=== PATIENT | female | born 1995 | race Caucasian/White ===

== ENCOUNTER 2019-07-09 00:24 | Outpatient (CLI) | payer OTHER, SELFPAY | END 2019-07-09 00:25 | disposition home or self-care (01) | LOC: ANHCOVIDDT 00:25 | PROVIDERS: Visit Provider Surgery Plastic and Reconstructive Surgery | DX: Z01.818 Encounter for other preprocedural examination (principal); Z11.59 Encounter for screening for other viral diseases | CPT/HCPCS: 87635; C9803; U0003 ==

== ENCOUNTER 2019-07-12 00:36 | Day surgery (SDC) | payer OTHER, SELFPAY ==
[2019-07-05 16:27] VITALS: BMI 36.3
[2019-07-12] VITALS (12 sets, daily range): BP systolic 108–129; BP diastolic 56–97; PULSE 98–112; RESP 14–20; TEMP 36.6; O2SAT 90–100
--- NOTE | 2019-07-12 07:01 | WPDHPUPDATE1 ---
History and Physical Update Update Date/Time: 07/12/19 07:01 History and Physical has been reviewed, including an updated exam of the patient. There are NO changes in the patient's condition. Risks, benefits, and alternatives have been discussed and questions answered. Patient agrees to proceed with procedure.
--- NOTE | 2019-07-12 07:01 | P.OP_ITS ---
Procedure Note - Detailed Date of procedure: 07/12/19 Pre-op diagnosis: Macromastia Post-op diagnosis: same Procedure performed: Bilateral Breast Reduction Description of procedure: She is here today for bilateral breast reduction. Previously and again today the risks, benefits, alternatives were discussed in extensive detail. I wanted her to be very realistic about the risks involved as well as expectations. We discussed aftercare and what to monitor for. She understands we can never guarantee final breast size and there will always be asymmetry. I was very upfront and honest about the risks of sensation change and even nipple loss (). Made sure answered all of her questions to her satisfaction today and consent was obtained. She was marked in the preoperative holding area with their verification. The patient was taken to the operating room placed supine on the operating table. Anesthesia was provided by anesthesiology. She was prepped and draped in a standard sterile fashion. A surgical time-out was taken. Stab incisions were made and I tumessed with a tumescent solution. I marked out the nipple-areolar complex at 42 mm. I then de-epithelialized the pedicle. The pedicle was well left well more than 2 cm in thickness. I then removed the inferior portion of the breast as well as the central keel to get shape based on preoperative planning. At this point copiously irrigated with saline solution and verified a strict hemostasis. I reapproximated the pillars using a 2-0 PDS as well as along the IMF. I tailor tacked the breast into place with fernando. She was placed in a sitting position. I verified the nipple-areolar complex position based on preoperative markings, intraoperative measurements, and observation which were in full agreement. This nipple-areolar complex was marked at 42 mm in size. I then placed supine and de-epithelialized this. Nipple-areolar complex was inset with 3-0 Monocryl. I closed the vertical incision with 3-0 Monocryl in the IMF with 3-0 stratafix. Then everything was closed using a running subcuticular 4-0 Monocryl followed by Steri-Strips. A dressing was placed followed by surgical bra. Patient was awoke and taken to PACU without difficulty. All instrument sponge counts were correct at the end of the case. Anesthesia: GLMA Surgeon: Jairo Veliz MD Estimated blood loss (mL): 20 Drains: No Packing: No Pathology: yes (Bilateral breast tissue) Complications: No immediate complications Condition: stable Disposition: PACU Findings: Inverted T superior medial pedicle. Tissue removed * Right: 1473.8 grams * Left: 1212.3 grams
--- NOTE | 2019-07-12 07:03 | WPDANESEPPF ---
Anes - Initial Pre Proc Eval Procedure: Operation Date: 07/12/19 07:30 Proposed Procedures p Bilateral Breast Reduction - Jairo Veliz MD Date/Time: 07/12/19 07:03 Surgeon: Jairo Veliz MD Pre Op Diagnosis: Macromastia Patient Data Age: 24 Gender: F Height: 5 ft 3 in Weight: 93.2 kg Allergies Allergy/AdvReac Type Severity Reaction Status Date / Time amoxicillin AdvReac Hives Verified 07/05/19 16:24 Home Medications Medication Instructions Recorded Confirmed Type docusate sodium 100 mg capsule 100 mg PO BID #14 cap 06/29/19 07/05/19 Rx ondansetron HCl 4 mg tablet 4 mg PO Q8H PRN #14 tablet 06/29/19 07/05/19 Rx oxycodone-acetaminophen 5 mg-325 1 tablet PO Q6H PRN #15 tablet 07/06/19 Rx mg tablet Patient hx anesthesia problems: none Family hx anesthesia problems: none PMFSH Past Medical History Medical History Anxiety Depression History of PCOS Kidney stones PTSD (post-traumatic stress disorder) Surgical History Surgical History H/O LEE 03/2017 Social History Social History Smoking status: Never smoker Alcohol intake: current Gender identity (if verbalized by the patient): Female Anes - Eval Final PreProcedure Day of Procedure 07/12/19 07:03 Patient weight: obese Heart: regular rate and rhythm Lungs: clear to auscultation Airway: Mallampati scale class II Neurological: alert and oriented Last oral intake: >/= 8 hours ASA classification: III Emergent: no Anesthetic plan: proceed Anesthesia type and monitoring: general ETT and standard monitoring Informed Consent: The patient's anesthetic plan and its attendant risks and benefits were discussed with the patient/family/POA. Questions were solicited and answers provided to the satisfaction of the patient/family/POA.
[2019-07-12] MEDS: LACTATED RINGERS 1,000 ML 30 ML IV CONT ×3 (07:15→12:20)
[2019-07-12 08:00] LABS: Urine Cotinine NEGATIVE
[2019-07-12] MEDS: CLINDAMYCIN 900 MG/NS 50 ML 900 MG/50 ML PIGGYBACK 50 MG IVPB (08:06)
[2019-07-12] MEDS: ONDANSETRON INJ 4 MG/2 ML VIAL IV PUSH (12:20)
[2019-07-12] MEDS: SCOPOLAMINE 1.5 MG PATCH TRANSDERM (12:42)
--- NOTE | 2019-07-12 12:54 | SUR.PHASEII ---
1230 UPDATED . 1250 UPDATED MOTHER AND AUNT FOR TRANSPORTATION HOME.
== END 2019-07-12 14:00 | disposition home or self-care (01) ==
PROVIDERS: Visit Provider Surgery Plastic and Reconstructive Surgery
PROC: 0HBV0ZZ Excision of Bilateral Breast, Open Approach (ICD-10-PCS; CPT 19318; principal; 2019-07-12 07:30)
DX: N62 Hypertrophy of breast (principal); N60.32 Fibrosclerosis of left breast; N60.31 Fibrosclerosis of right breast; F43.10 Post-traumatic stress disorder, unspecified; F41.8 Other specified anxiety disorders; E66.9 Obesity, unspecified; Z68.38 Body mass index [BMI] 38.0-38.9, adult
CPT/HCPCS: 19318; 36415; 80307; 88305; A9270; J0131; J0171; J1100; J1170; J2001; J2250; J2405; J3010; J7120

== ENCOUNTER 2019-08-07 02:14 | Inpatient (IN) | payer OTHER, SELFPAY ==
[2019-08-07] VITALS (16 sets, daily range): BP systolic 95–125; BP diastolic 49–92; PULSE 93–127; RESP 12–25; TEMP 36.1–36.9; O2SAT 88–100; BMI 39.4
--- NOTE | 2019-08-07 02:10 | ADMGEN ---
This patient, Sarah Duenas, was admitted to Medical Room 348-01 from [facility] via [facility]. Patient/family oriented to hospital policies and general routines including ID bracelet, bed and alarms, visiting hours, pain management, procedures, bathroom and other care routines, personal items, smoking policy, room service/diet, and visiting hours. Valuables list has been completed. Information on how to activate the Rapid Response Team has been discussed. Patient/Family are encouraged to report perceived risks to care and to ask questions if they do not understand what they are told or what they should do.
--- NOTE | 2019-08-07 04:51 | PC.NURSE ---
[facility] PLASTIC SURGERY EXCHANGE, CC NORM ONEILL MD, NOTIFIED OF PATIENT ADMISSION. AWAIT CALL BACK
[2019-08-07] MEDS: LACTATED RINGERS 1,000 ML 125 ML IV CONT ×3 (05:40→21:12)
[2019-08-07 05:58] LABS: Hematocrit 30.6 % (37.0-47.0); Hemoglobin 9.9 g/dL (12.0-15.0); Mean Corpuscular HGB Conc 32.4 g/dl (32-36); Mean Corpuscular Volume 92.7 fl (80-100); Mean Platelet Volume 9.5 fl (7.4-10.4); Platelet Count Result 301 k/mm3 (150-375); Red Cell Distribution Width 12.5 % (11.5-14.5)
--- NOTE | 2019-08-07 06:04 | PM.IMHP ---
H&P: HPI History of Present Illness Chief complaint: post op infection/sepsis Narrative: Sarah Duenas is a 24 year old female who presents with fever / chills. History: 07/12/2019 underwent bilateral breast reduction with tissue removed right: 1473.8 grams Left: 1212.3 grams. 07/13/2019 follow-up small area of concern breast, 90% good color capillary refill right breast NAC. 07/19/2019 made a housecall as concerns right NAC blistering. She was otherwise feeling well. 07/25/2019 she was seen in office with right breast blister, left breast had slight lateral erythema treated with clindamycin. 08/03/2019 she was seen in office, doing much better, right NAC with 20-30% of NAC still worrisome. No SOI. Left breast doing well. She called last night. She described temperatures of 100-105 degree for the previous 48 hours. She stated her throat had been very dry and she had been drinking lots of fluid. She discussed this with her who thought this was just a virus that she would get over it. She mentioned that she was having an occasional cough; however, throughout the conversation I was hearing a regular deep dry cough. At that time again she stated that her right breast was stable in size, not getting larger, no erythema, no drainage. She said she had a little more pain on the right but just a minimal difference and she has been very active with the right arm over the previous day. No shortness of breath. No chest pain. No calf tenderness. We discussed her options and given that she had no real right breast change with a cough and a sore throat with fever being so severe and also possible dehydration I told her to call her PCP verses urgent care or emergency room for evaluation. Explained the could call me with any questions or concerns and we outlined what to expect during that visit. Let her know I would like to speak with them as well and I'm always available. Subsequently I was called from [facility]. They stated they had completed labs and imaging in the imaging showed right breast gas and they were actually calling at necrotizing fasciitis and would like to transfer. Upon arrival I came to see her. She states that just over the last 2 days she began to develop some fevers and chills. A little nausea but no vomiting. She does feel like her breast has changed at all. It is the same size. It was a little more firm Thursday; however, softer today. She has had no drainage. No redness. She feels like the right NAC just keeps improving. She had a cough for 2 days and that has resolved this morning. No shortness of breath. No chest pain. No calf tenderness. No dysuria. She felt like she had a dry throat and was drinking a lot of water and had urine output proportional to that water intake. She report sat her fever had been between 101 and 105?F. Currently she says she is actually feeling a little better. No chills. No nausea or vomiting. No SOB. No chest pain. No calf tenderness. Labs were obtained from outside facility. Negative HCG. u/a completed with significant squamous cells. (+ bacteria, + WBC). Maximum temperature at outside facility 103.2. WBC 15.7. She was given Rocephin, Maxepime, Flagyl, and Vancomycin. Blood cultures were taken. I do not have the official review of CT scan completed available. Per report they described increased air pockets / fluid collections right breast. No radiologist is available currently. I reviewed the film and do appreciate the differences on review of the films as described above. Review of Systems Constitutional: Constitutional: Reports as per HPI and Reports body ache(s) Eyes: Eyes: Reports no additional eye complaints ENT: Reports Normal hearing present, Denies nasal congestion and Denies nasal discharge Cardiovascular: Cardiovascular: Reports no additional cardiovascular complaints and Denies chest pain Respiratory: Respiratory: Reports as per HPI and Neri
[2019-08-07 06:24] LABS: Blood Urea Nitrogen 9 mg/dL (7-17); Calcium 8.5 mg/dL (8.4-10.2); Carbon Dioxide 23 mmol/L (22-30); Chloride 106 mmol/L (98-107); Estimated CRCL calculation 164 ml/min; Estimated Glomerular Filt Rate > 60; Glucose 101 mg/dL (65-105); Potassium 3.7 mmol/L (3.4-5.0); Sodium 136 mmol/L (137-145)
--- NOTE | 2019-08-07 08:01 | PM.IMCN ---
Assessment and Plan Assessment and plan (1) Sepsis: Code(s): A41.9 - Sepsis, unspecified organism Status: Acute Assessment and Plan: The patient was found to be septic on arrival to the ER with tachycardia, fever, leukocytosis, in the setting of recent surgery and potential abscess of the right breast. Blood cultures were taken at other facility. She was started on IV cefepime, Flagyl, and vancomycin for broad-spectrum antibiotics Continue monitoring patient's vital signs. (2) Fever: Code(s): R50.9 - Fever, unspecified Status: Acute Assessment and Plan: Patient reports her T-max at home was 105?. At the emergency room yesterday her temperature was a 103.8?. Will continue with Tylenol as needed for fever and monitoring her symptoms. (3) Breast abscess: Code(s): N61.1 - Abscess of the breast and nipple Status: Acute Assessment and Plan: Patient's CT scan of her chest at outside facility showed she had a possible abscess to her right breast. Dr. Veliz evaluated the patient and is going to take her to the OR today for washout and debridement. Continue monitoring. (4) History of bilateral breast reduction surgery: Code(s): Z98.890 - Other specified postprocedural states Status: Acute Assessment and Plan: Patient had bilateral breast reduction surgery with tissue removal on 07/12/2019. HPI Data of Consult Consult date: 08/07/19 Requesting Physician: Jairo Veliz MD Primary Care Provider: [facility]IC[facility] Consult Narrative Narrative: Sarah Duenas is a 24 year old female with a history of PCOS, depression, anxiety, PTSD, with a recent bilateral breast reduction with tissue removal on 07/12/[address] Veliz, who presented to [facility] with fevers and chills for 2 days, T-max a 105?. The patient states initially after her surgery she did have some slight erythema to her left breast but she was placed on clindamycin with improvement. She also states that there has been a darkened area to her right nipple since her surgery. She denies any redness around the area, drainage, warm, increased pain, swelling. She states she has felt dehydrated with increased dry mouth, and states this has caused her to a sore throat and intermittent dry cough. She denies any chest congestion, shortness of breath, productive cough, chest pain, dysuria, frequent urination, dark urine, nausea, vomiting, abdominal pain, diarrhea, constipation, leg swelling, calf pain, headache, lightheadedness, dizziness, syncope, or any other symptoms at this time. Her initial labs at outside facility showed, leukocytosis at 15,700 with a left shift, normocytic anemia with a hemoglobin of 10.6/hemoglobin 31.5, normal CMP. Urinalysis showed cloudy urine with 3+ blood, 1+ protein, 6-10 rbc's, 6-10 wbc's, trace bacteria, greater than 20 squamous cells, which is most consistent with contamination. CT chest with contrast was completed at outside facility and I do not have any results on this but as per Dr. Veliz's note it had shown increased air pockets, fluid collection to the right breast. The patient was transferred to our facility with an admission to Dr. Veliz Plastic Surgery with a consult to the hospitalist team for medical management. Continue the patient's IV antibiotics which include cefepime, Flagyl, and vancomycin. Blood cultures were taken at other facility. Code status: Full code [id number]: Antoine Primary care provider: None Review of Systems Review of Systems: All systems reviewed & are unremarkable except as noted in HPI and below PMFSH Past Medical History Medical History (Updated 08/07/19 @ 10:29 by Oma Wiley PA-C) Anxiet
[2019-08-07] MEDS: metroNIDAZOLE 500 MG/ISO 100ML 500 MG/100 ML BAG 100 MG IVPB ×3 (09:01→23:24)
--- NOTE | 2019-08-07 10:54 | WPDANESEFPP ---
Anes - Eval Final PreProcedure Day of Procedure 08/07/19 10:54 Patient weight: morbidly obese Heart: regular rate and rhythm Lungs: clear to auscultation Airway: Mallampati scale class II Neurological: alert and oriented Last oral intake: >/= 8 hours ASA classification: III Emergent: yes Anesthetic plan: proceed Anesthesia type and monitoring: general LMA and standard monitoring Informed Consent: The patient's anesthetic plan and its attendant risks and benefits were discussed with the patient/family/POA. Questions were solicited and answers provided to the satisfaction of the patient/family/POA.
[2019-08-07] MEDS: LIDO 1%/EPINEPHRINE 1:100,000 20 ML VIAL INFILTRATE (11:21)
--- NOTE | 2019-08-07 12:27 | PM.PROC ---
Procedure Note - Detailed Date of procedure: 08/07/19 Pre-op diagnosis: post op infection/sepsis Post-op diagnosis: same Procedure performed: 1. Incision and drainage right breast 2. Sharp debridement skin / subcutaneous tissue 2x2cm right breast Description of procedure: Patient was marked in the preoperative holding area. She was taken to the operating room placed supine on the operating table. Anesthesia was provided by anesthesiology and prepped and draped in a standard sterile fashion. A 15 blade used to make an incision along the IMF as well as vertically. I in the previous dissection planes. Identified a significant volume of purulence which did have a degree of an anaerobic smell as well. Cultures were taken. I spent extensive time making sure we opened any area of concerns of this was completely drained. I then irrigated with 3 L of bacitracin containing solution on TUR tubing until we had good clear drainage. I verified a strict hemostasis. Fifteen blade was used as a drain brought out through the axilla. I closed using 2-0 PDS followed by 3-0 Monocryl in a running subcuticular 4-0 Monocryl and tissue glue. The superior half of the Ellis had survived the inferior half had evidence of granulation and good bleeding. The pedicle appeared to have good color as well with no evidence of necrosis. Anesthesia: GLMA Surgeon: Jairo Veliz MD Estimated blood loss (mL): 20 Drains: Yes ( Fifteen Jorge A right breast) Packing: Yes ( Xeroform at the nipple-areolar location) Pathology: none sent Complications: No immediate complications Condition: stable Disposition: PACU Findings: Significant purulence identified. Culture sent. The superior half of the areola was well healed and viable. The inferior half had a dry eschar that was debrided (2x2cm skin, subcutanoues tissue). the tissue deep to this had good color and capillary refill and bleeding. So did the pedicle with no evidence of necrosis.
--- NOTE | 2019-08-07 12:34 | SUR.OPER ---
EBL:20cc
[2019-08-07] MEDS: LACTATED RINGERS 1,000 ML 30 ML IV CONT (13:05)
[2019-08-07] MEDS: HYDROMORPHONE HCL 1 MG/ML INJ 0.5 MG IV PUSH ×3 (14:19→15:32)
--- NOTE | 2019-08-07 14:30 | SUR.PHASEI ---
AND FATHER UPDATED.
[2019-08-07] MEDS: DOCUSATE SODIUM 100 MG CAPSULE PO ×2 (16:19→21:13)
[2019-08-07] MEDS: ONDANSETRON INJ 4 MG/2 ML VIAL IV PUSH ×2 (16:40→23:24)
[2019-08-07] MEDS: ACETAMINOPHEN 325 MG TABLET 650 MG PO (19:18)
[2019-08-07] MEDS: MORPHINE SULFATE 2 MG/ML INJ 1 MG IV PUSH (21:13)
[2019-08-07 21:56] LABS: Urine Cotinine NEGATIVE
[2019-08-08 04:58] VITALS: BP 108/71; PULSE 131; RESP 18; TEMP 37.1; O2SAT 98
[2019-08-08] MEDS: ONDANSETRON INJ 4 MG/2 ML VIAL IV PUSH ×2 (05:33→11:38)
[2019-08-08] MEDS: metroNIDAZOLE 500 MG/ISO 100ML 500 MG/100 ML BAG 100 MG IVPB ×4 (05:34→23:59)
[2019-08-08 06:14] LABS: Add Urine Microscopic? YES; Appearance Urine Clear (Clear); Bacteria Urine Trace /hpf; Bilirubin Urine Negative (Negative); Blood Urine 2+ (Negative); Color Urine Yellow (Yellow); Glucose Urine UA Negative (Negative); Ketones Urine 1+ mg/dL (Negative); Leukocyte Esterase Ur Negative LEU/UL (NEGATIVE); Mucus Urine Rare /lpf; Nitrate Urine Negative (Negative); Protein Urine Negative (Negative); RBC Urine 0-2 /hpf (0-2); Specific Grav Ur 1.017 (1.001-1.035); Squamous Epithelial Cell Urine Occasional /hpf (Few); WBC Urine 0-3 /hpf (0-3)
--- NOTE | 2019-08-08 07:11 | WPDPN ---
Progress Note: A&P Assessment and Plan (1) Breast abscess: Code(s): N61.1 - Abscess of the breast and nipple Status: Acute Assessment and Plan: In surgery yesterday significant purulence was identified of the right breast. This was completely washed out. Drain was placed. Cultures taken. Begin right breast dressing changes. Follow-up with cultures. Check CBC. Antibiotics and medical care per hospitalist. Appreciate their assistance. Discharge planning. (2) History of bilateral breast reduction surgery: Code(s): Z98.890 - Other specified postprocedural states Status: Acute (3) BMI 40.0-44.9, adult: Code(s): Z68.41 - Body mass index (BMI) 40.0-44.9, adult Status: Acute (4) PTSD (post-traumatic stress disorder): Code(s): F43.10 - Post-traumatic stress disorder, unspecified Status: Acute (5) Anxiety: Code(s): F41.9 - Anxiety disorder, unspecified Status: Acute (6) Depression: Code(s): F32.9 - Major depressive disorder, single episode, unspecified Status: Acute (7) PCOS (polycystic ovarian syndrome): Code(s): E28.2 - Polycystic ovarian syndrome Status: Acute Review of Systems Review of Systems: All systems reviewed & are unremarkable except as noted in HPI and below Exam Narrative: Exam Narrative: Right breast is soft. No signs of infection. No hematoma. No seroma. Drain is becoming serosanguineous. Const: General: comfortable and no acute distress Resp: Effort & Inspection: normal respiratory effort Auscultation: no wheezes Cardio: Rate: regular rate GI: GI Palp: Yes Soft to palpation Skin: General skin exam: normal color Neuro: Cognition (Neuro): normal cognition Speech: normal speech Extrem: Other: No calf tenderness. Negative Homans. Psych: Mental Status: mental status grossly normal Objective Data Vital Signs Vital Signs: Vital Signs - 24 hr 08/07/19 13:05 08/07/19 13:20 08/07/19 13:35 Temperature 36.2 C L Pulse Rate 114 H 101 H 101 H Respiratory Rate 18 21 H 25 H Blood Pressure 119/76 125/79 115/71 Pulse Oximetry 100 100 100 08/07/19 13:50 08/07/19 14:03 08/07/19 14:05 Temperature Pulse Rate 107 H 104 H Respiratory Rate 16 14 Blood Pressure 119/75 104/82 Pulse Oximetry 97 98 99 08/07/19 14:25 08/07/19 14:40 08/07/19 14:55 Temperature Pulse Rate 93 109 H 97 Respiratory Rate 13 19 21 H Blood Pressure 104/82 110/77 99/79 L Pulse Oximetry 99 99 99 08/07/19 15:10 08/07/19 15:25 08/07/19 15:42 Temperature 36.2 C L Pulse Rate 97 101 H 113 H Respiratory Rate 16 16 14 Blood Pressure 99/79 L 106/69 103/72 Pulse Oximetry 99 99 99 08/07/19 15:50 08/07/19 21:05 08/08/19 04:58 Temperature 36.2 C L 36.9 C 37.1 C Pulse Rate 97 127 H 131 H Respiratory Rate 22 H 15 18 Blood Pressure 105/73 118/92 H 108/71 Pulse Oximetry 97 100 98 Intake/Output Intake/Output: Intake & Output 08/05/19 08/06/19 08/07/19 08/08/19 23:59 23:59 23:59 23:59 Intake Total 2950 1200 Output Total 235 660 Balance 2715 540 Meds/Results Medications: Active Medications Generic Name Dose Route Start Last Admin Trade Name Freq PRN Reason Stop Dose Admin Acetaminophen 650 mg 08/07/19 08:03 08/07/19 19:18 Tylenol Tablet PO 650 mg Q4H PRN Administration Pain 1-3 or fever Hydrocodone Bitart/Acetaminophen 1 tab 08/07/19 04:57 08/08/19 05:34 [place] 5-325 Mg PO 1 tab Q6H PRN Administration Pain Rated 4-6 Docusate Sodium 100 mg 08/07/19 09:00 08/07/19 21:13 Colace Capsule PO 100 mg Q12HR DEX Administration Enoxaparin Sodium 40 mg 08/08/19 09:00 Lovenox SUB-Q DAILY DEX Fentanyl Citrate 25 mcg 08/07/19 10:54 08/07/19 13:55 Sublimaze IV PUSH 25 mcg Q2M PRN Administration Pain Lactated Ringer's 1,000 mls @ 125 mls/hr 08/07/19 05:00 08/08/19 06:17 Lr - Lactated Ringers Iv IV CONT Not Given .Q8H
[2019-08-08] MEDS: DOCUSATE SODIUM 100 MG CAPSULE PO ×2 (08:17→21:30)
--- NOTE | 2019-08-08 08:39 | WPDANESPN ---
Anes - Prog Note Post-Op Date/Time: 08/08/19 08:39 Cardiovascular status: normal Respiratory status: normal Airway patency: baseline Mental status: baseline Post-Op hydration status: normal Vital Signs: Last Vital Signs Temp 37.1 C 08/08/19 04:58 Pulse 131 H 08/08/19 04:58 Resp 18 08/08/19 04:58 BP 108/71 08/08/19 04:58 Pulse Ox 98 08/08/19 04:58 I/O: Intake & Output 08/07/19 08/08/19 08/08/19 23:59 07:59 15:59 Intake Total 1300 1200 Output Total 200 660 325 Balance 1100 540 -325 Laboratory Tests 08/07/19 05:46 08/07/19 05:46 08/07/19 08/07/19 21:38 21:38 Urine Color Yellow Urine Appearance Clear Urine pH 6.0 Ur Specific [place] 1.017 Urine Protein Negative Urine Glucose (UA) Negative Urine Ketones 1+ H Ur Blood (Man) 2+ H Urine Nitrate Negative Urine Bilirubin Negative Urine Urobilinogen 4.0 H Ur Leukocyte Esterase Negative Urine RBC 0-2 Urine WBC 0-3 Ur Squamous Epith Cells Occasional Urine Bacteria Trace Urine Mucus Rare Cotinine Negative Post-procedural complaints: none Patient Feedback: Patient satisfied with anesthetic care.
--- NOTE | 2019-08-08 09:13 | PC.NURSE ---
Patient has refused blood draws x 3 today. She attempts to allow the blood draw but then becomes very anxious and cannot hold still for the draw. Patient also becomes nauseated and states it is a result of anxiety over being stuck with a needle. Patient states she can usually talk herself through a blood draw by concentrating on her breathing. I discussed these relaxation techniques with patient and encouraged her to let me know when she feels like we could try again. Patient has also refused her Lovenox injection at this point, but states she will take it later after she talks herself into it. I placed patient's SCDs on her and encouraged her to wear them to prevent DVTs.
[2019-08-08] MEDS: LORAZEPAM 0.5 MG TABLET PO (12:01)
--- NOTE | 2019-08-08 12:01 | PC.NURSE ---
Notified Patsy GARCIA that patient has been very fearful of needle sticks and has not agreed to lab draws or Lovenox this morning. Orders received for Ativan 0.5mg po q6h prn for anxiety. Discussed with patient and she is agreeable to trying this 30-45 minutes prior to having her blood drawn.
--- NOTE | 2019-08-08 13:26 | PM.IMPN ---
Progress Note: A&P Assessment and Plan (1) Sepsis: Code(s): A41.9 - Sepsis, unspecified organism Status: Acute Assessment and Plan: The patient was found to be septic on arrival to the ER with tachycardia, fever, leukocytosis, in the setting of recent surgery and potential abscess of the right breast. Blood cultures were taken at other facility. Wound cultures were taken during her surgery yesterday and we are waiting for official results. Will continue IV cefepime, Flagyl, and vancomycin for broad-spectrum antibiotics Patient is still tachycardic today, afebrile, will blood pressure, normal oxygenation postop. Continue monitoring patient's vital signs. (2) Fever: Code(s): R50.9 - Fever, unspecified Status: Acute Assessment and Plan: Patient reports her T-max at home was 105?. At the emergency room at [facility] her temperature was a 103.8?. Patient has been afebrile since being in our facility. Will continue with Tylenol as needed for fever and monitoring her symptoms. (3) Breast abscess: Code(s): N61.1 - Abscess of the breast and nipple Status: Acute Assessment and Plan: Patient's CT scan of her chest at outside facility showed she had a possible abscess to her right breast. Patient went to the OR on 08/07/2019 for drainage of abscess Continue monitoring. (4) History of bilateral breast reduction surgery: Code(s): Z98.890 - Other specified postprocedural states Status: Acute Assessment and Plan: Patient had bilateral breast reduction surgery with tissue removal on 07/12/2019. Time Spent With Patient Time with patient: 25 - 35 minutes Subjective Date/time seen: 08/08/19 13:26 Interval history: Date of service 08/08/2019: The patient states her pain right now is rated a 2 or 3/10 after having surgery to her right breast yesterday. She denies any more fevers or chills. She does report intermittent nausea and is wanting some antiemetics at this time. She denies any vomiting since yesterday prior to her surgery. She denies any shortness of breath, cough, abdominal pain, diarrhea, constipation, leg swelling, calf pain or any other symptoms at this time. Review of Systems Review of Systems: All systems reviewed & are unremarkable except as noted in HPI and below Exam Narrative: Exam Narrative: General: 24-year-old woman sitting up in bed, resting comfortably. In no acute distress. Skin: See breast exam. No jaundice or cyanosis. Good skin turgor. Breast: Did not examine the right breast today because there is a bandage in place from her surgery yesterday. Surgical scars noted to bilateral breasts from her axillary, under breasts and to her mid sternum. Surgical scars appear to be clean, dry, intact, with Steri-Strips still in place from surgery. No signs of erythema, drainage, warmth, edema to left breast. Neck: Full range of motion. Supple. Respiratory: Lungs are clear to auscultation bilaterally. No bony chest wall tenderness. Cardiovascular: Slightly tachycardic heart rate, regular rhythm, no murmur auscultated. Lower extremities: No lower extremity edema. Distal pulses are easily palpated. No calf tenderness to palpation. Gastrointestinal: The abdomen is soft, nontender and nondistended with active bowel sounds. Psychiatric: Lucid and oriented. Memory intact. Neurologic: No focal deficits. Speech is clear. No facial drooping. Objective Data Vital Signs Vital Signs: Vital Signs - 24 hr 08/07/19 13:35 08/07/19 13:50 08/07/19 14:03 Temperature Pulse Rate 101 H 107 H Respiratory Rate 25 H 16 Blood Pressure 115/71 119/75 Pulse Oximetry 100 97 98 08/07/19 14:05 08/07/19 14:25 08/07/19 14:40 Temperature Pulse Rate 104 H 93 109 H
[2019-08-08 14:00] VITALS: BP 107/68; PULSE 117; RESP 18; TEMP 36.7; O2SAT 96
[2019-08-08 20:22] LABS: Basophils Percent Auto 0.5 % (0.2-1.2); Eosinophils Absolute Auto 0.1 K/mm3 (0-0.3); Eosinophils Percent Auto 0.7 % (0-4.4); Hematocrit 30.8 % (37.0-47.0); Hemoglobin 9.9 g/dL (12.0-15.0); Immature Granulocyte Absolute 0.02 K/mm3 (0.00-0.031); Immature Granulocyte Percent A 0.2 % (0-0.5); Lymphocytes Absolute Auto 1.41 K/mm3 (0.9-3.2); Lymphocytes Percent Auto 17.5 % (18.3-44.2); Mean Corpuscular HGB Conc 32.1 g/dl (32-36); Mean Corpuscular Hemoglobin 29.6 pg (26-34); Mean Corpuscular Volume 92.2 fl (80-100); Mean Platelet Volume 9.3 fl (7.4-10.4); Monocytes Absolute Auto 0.6 K/mm3 (0.1-0.6); Monocytes Percent Auto 7.7 % (2.6-8.5); Neutrophils Absolute Auto 5.9 K/mm3 (1.3-6.7); Neutrophils Percent Auto 73.4 % (45.5-73.1); Platelet Count Result 358 k/mm3 (150-375); Red Blood Count 3.34 M/mm3 (4.2-5.4); Red Cell Distribution Width 12.3 % (11.5-14.5)
[2019-08-08 20:33] LABS: Magnesium 2.1 mg/dL (1.6-2.3)
[2019-08-08 20:51] LABS: Vancomycin Trough 6.9 ug/mL (10.0-20.0)
[2019-08-08 20:55] VITALS: BP 118/79; PULSE 120; RESP 16; TEMP 36.4; O2SAT 100
[2019-08-08] MEDS: LACTATED RINGERS 1,000 ML 125 ML IV CONT (21:30)
[2019-08-09 05:06] VITALS: BP 115/77; PULSE 123; RESP 16; TEMP 36.9; O2SAT 97
[2019-08-09] MEDS: metroNIDAZOLE 500 MG/ISO 100ML 500 MG/100 ML BAG 100 MG IVPB (05:49)
[2019-08-09 07:35] LABS: Hematocrit 29.3 % (37.0-47.0); Hemoglobin 9.3 g/dL (12.0-15.0); Mean Corpuscular HGB Conc 31.7 g/dl (32-36); Mean Corpuscular Hemoglobin 29.3 pg (26-34); Mean Corpuscular Volume 92.4 fl (80-100); Mean Platelet Volume 9.4 fl (7.4-10.4); Platelet Count Result 334 k/mm3 (150-375); Red Blood Count 3.17 M/mm3 (4.2-5.4); Red Cell Distribution Width 12.1 % (11.5-14.5); White Blood Count 7.4 K/mm3 (4.5-10.0)
--- NOTE | 2019-08-09 07:38 | WPDPN ---
Progress Note: A&P Assessment and Plan (1) Breast abscess: Code(s): N61.1 - Abscess of the breast and nipple Status: Acute Assessment and Plan: Resting comfortably. WBC normal. Discharge planning. Will follow-up with cultures. She does have some loose stools but no fevers and normal white count no evidence of C diff. Will monitor for now. Hold Colace. Appreciate hospitalist assistance. (2) History of bilateral breast reduction surgery: Code(s): Z98.890 - Other specified postprocedural states Status: Acute (3) BMI 40.0-44.9, adult: Code(s): Z68.41 - Body mass index (BMI) 40.0-44.9, adult Status: Acute (4) PTSD (post-traumatic stress disorder): Code(s): F43.10 - Post-traumatic stress disorder, unspecified Status: Acute (5) Anxiety: Code(s): F41.9 - Anxiety disorder, unspecified Status: Acute (6) Depression: Code(s): F32.9 - Major depressive disorder, single episode, unspecified Status: Acute (7) PCOS (polycystic ovarian syndrome): Code(s): E28.2 - Polycystic ovarian syndrome Status: Acute Review of Systems Review of Systems: All systems reviewed & are unremarkable except as noted in HPI and below Exam Narrative: Exam Narrative: Right breast is soft. No erythema. No signs of infection. No hematoma. No seroma. Drain is serosanguineous. Const: General: comfortable and no acute distress Eyes: General: appearance normal, both eyes and all related structures Resp: Effort & Inspection: normal respiratory effort Auscultation: no wheezes Cardio: Rate: regular rate GI: GI Palp: Yes Soft to palpation Skin: General skin exam: normal color Neuro: Cognition (Neuro): normal cognition Speech: normal speech Extrem: Other: No calf tenderness. Negative Homans. Psych: Mental Status: mental status grossly normal Objective Data Vital Signs Vital Signs: Vital Signs - 24 hr 08/08/19 14:00 08/08/19 20:55 08/09/19 05:06 Temperature 36.7 C 36.4 C 36.9 C Pulse Rate 117 H 120 H 123 H Respiratory Rate 18 16 16 Blood Pressure 107/68 118/79 115/77 Pulse Oximetry 96 100 97 Intake/Output Intake/Output: Intake & Output 08/06/19 08/07/19 08/08/19 08/09/19 23:59 23:59 23:59 23:59 Intake Total 2950 3895 550 Output Total 235 2185 Balance 2710 1710 550 Meds/Results Medications: Active Medications Generic Name Dose Route Start Last Admin Trade Name Freq PRN Reason Stop Dose Admin Acetaminophen 650 mg 08/07/19 08:03 08/07/19 19:18 Tylenol Tablet PO 650 mg Q4H PRN Administration Pain 1-3 or fever Hydrocodone Bitart/Acetaminophen 1 tab 08/07/19 04:57 08/08/19 18:59 [place] 5-325 Mg PO 1 tab Q6H PRN Administration Pain Rated 4-6 Docusate Sodium 100 mg 08/07/19 09:00 08/08/19 21:30 Colace Capsule PO 100 mg Q12HR DEX Administration Enoxaparin Sodium 40 mg 08/08/19 09:00 08/08/19 14:02 Lovenox SUB-Q Not Given DAILY [facility] Fentanyl Citrate 25 mcg 08/07/19 10:54 08/07/19 13:55 Sublimaze IV PUSH 25 mcg Q2M PRN Administration Pain Lactated Ringer's 1,000 mls @ 125 mls/hr 08/07/19 05:00 08/08/19 21:37 Lr - Lactated Ringers Iv IV CONT Not Given .Q8H DEX Metronidazole 500 mg in 100 mls @ 100 mls/hr 08/07/19 08:00 08/09/19 06:58 Flagyl 500 Mg/Iso Soln 100 Ml IVPB Infused Q6HR DEX Infusion Cefepime HCl 2 gm in 50 mls @ 100 mls/hr 08/07/19 08:00 08/09/19 00:25 Maxipime 2 Gm/D5w 50 Ml IVPB Infused Q8H DEX Infusion Vancomycin HCl 1,750 mg in 500 mls @ 250 mls/hr 08/09/19 09:00 Vancomycin 1,750 Mg/D5w 500 Ml IVPB Q12H DEX Lorazepam 0.5 mg 08/08/19 11:44 08/08/19 12:01 Ativan Tab PO 0.5 mg Q6H PRN Administration Anxiety Morphine Sulfate 1 mg 08/07/19 04:57 08/07/19 21:13 Morphine Sulfate Inj IV PUSH 1 mg Q2H PRN Administration Pain Rated 7-10 Ondansetron HCl 4 mg
[2019-08-09 07:49] LABS: Blood Urea Nitrogen 4 mg/dL (7-17); Calcium 8.5 mg/dL (8.4-10.2); Carbon Dioxide 26 mmol/L (22-30); Chloride 101 mmol/L (98-107); Estimated CRCL calculation 164 ml/min; Estimated Glomerular Filt Rate > 60; Glucose 105 mg/dL (65-105); Potassium 3.6 mmol/L (3.4-5.0); Sodium 134 mmol/L (137-145)
[2019-08-09] MEDS: LACTATED RINGERS 1,000 ML 125 ML IV CONT (09:22)
[2019-08-09] MEDS: LORAZEPAM 0.5 MG TABLET PO (13:43)
[2019-08-09 14:00] VITALS: BP 129/85; PULSE 108; RESP 18; TEMP 36.6; O2SAT 99
--- NOTE | 2019-08-09 14:31 | PM.IMPN ---
Progress Note: A&P Assessment and Plan (1) Sepsis: Code(s): A41.9 - Sepsis, unspecified organism Status: Acute Assessment and Plan: The patient was found to be septic on arrival to the ER with tachycardia, fever, leukocytosis, in the setting of recent surgery and potential abscess of the right breast as likely source. BCx taken at outside facility. Wound Cx shows gram stain of gram positive cocci. Anaerobic culture is in progress, Aerobic culture shows no growth to date With gram positive cocci, will continue with IV vancomycin and stop IV cefepime and Flagyl Will await further Cx results Possibly recommend PO doxycycline upon discharge pending the Cx results Continue to monitor (2) Breast abscess: Code(s): N61.1 - Abscess of the breast and nipple Status: Acute Assessment and Plan: Patient's CT scan of her chest at outside facility showed she had a possible abscess to her right breast. POD [address] Veliz As above, will continue with IV vanc for now given gram stain of gram positive cocci Await further results and tailor antibiotics to cultures As of now, recommend doxycycline PO when stable for discharge pending wound cultures Continue monitoring. (3) History of bilateral breast reduction surgery: Code(s): Z98.890 - Other specified postprocedural states Status: Acute Assessment and Plan: Patient had bilateral breast reduction surgery with tissue removal on 07/12/[address] Veliz Further post-op management per Dr. Veliz Subjective Date/time seen: 08/09/19 14:31 This is a Hospitalist Consult Progress Note Interval history: Patient is a 24 yo F with history of anxiety/depression, PCOS, and PTSD who recently had b/l breast reduction on 07/12/[address] Veliz who is here for treatment of right breast abscess; POD 2 I&D of right breast and debridement of skin/subcutanesous tissue of right breast per Dr. Veliz; Hospitalist service consulted for medical management. Patient is doing well today, although nervous about being stuck with needles. She notes being occasionally hot. Pain is reasonable. She notes less drainage from her drain. Her appetite has not been great today. Otherwise, patient has no other complaints. Denies f/c/s, palpitations, sob/cough, n/v/d/c, abd pain, dysuria, hematuria, cloudy urine, calf pain/swelling. Review of Systems Review of Systems: All systems reviewed & are unremarkable except as noted in HPI and below Exam Narrative: Exam Narrative: Patient is sitting upright in bed at time of visit Const: General: cooperative, healthy appearing, comfortable, no acute distress, well developed and alert Nutritional Appearance: well nourished and obese Orientation/consciousness: patient oriented x3 HENMT: Head: normocephalic and atraumatic Ears: external ears normal General nose exam: Normal nares present Face and sinus: face symmetric Mouth: Yes moist mucous membranes Eyes: General: appearance normal, both eyes and all related structures EOM: EOMs intact bilaterally Neck: Neck: trachea midline and supple Chest: Other: Right chest drain shows sanguinous to serosanguinous drainage Resp: Effort & Inspection: normal respiratory effort Auscultation: clear to auscultation bilaterally Cardio: Rate: tachycardic Rhythm: regular rhythm Heart sounds: no murmurs GI: Inspection: non-distended GI Palp: No abdominal tenderness and Yes Soft to palpation Auscultation: normal bowel sounds Skin: General skin exam: normal color and no rashes or lesions noted Neuro: General: patient oriented x3, moves all extremities and no focal motor deficits Speech: normal speech Extrem: Right lower extremity: no edema Left lower extremity: no edema Other: NTTP b/l calves Psych: Mental Status: mental sta
[2019-08-09 20:00] VITALS: PULSE 108; RESP 18; O2SAT 99
[2019-08-09 22:00] VITALS: BP 100/66; PULSE 74; RESP 18; TEMP 37.3; O2SAT 100
[2019-08-10 06:00] VITALS: BP 113/68; PULSE 108; RESP 16; TEMP 37.2; O2SAT 99
--- NOTE | 2019-08-10 06:51 | WPDPN ---
Progress Note: A&P Assessment and Plan (1) Breast abscess: Code(s): N61.1 - Abscess of the breast and nipple Status: Acute Assessment and Plan: Appreciate hospitalist assistance. Plan for d/c when OK from their perspective. (2) History of bilateral breast reduction surgery: Code(s): Z98.890 - Other specified postprocedural states Status: Acute (3) BMI 40.0-44.9, adult: Code(s): Z68.41 - Body mass index (BMI) 40.0-44.9, adult Status: Acute (4) PTSD (post-traumatic stress disorder): Code(s): F43.10 - Post-traumatic stress disorder, unspecified Status: Acute (5) Anxiety: Code(s): F41.9 - Anxiety disorder, unspecified Status: Acute (6) Depression: Code(s): F32.9 - Major depressive disorder, single episode, unspecified Status: Acute (7) PCOS (polycystic ovarian syndrome): Code(s): E28.2 - Polycystic ovarian syndrome Status: Acute Review of Systems Review of Systems: All systems reviewed & are unremarkable except as noted in HPI and below Exam Narrative: Exam Narrative: Right breast is soft. No erythema. No signs of infection. No hematoma. No seroma. Drain is serosanguineous. Const: General: comfortable and no acute distress Eyes: General: appearance normal, both eyes and all related structures Resp: Effort & Inspection: normal respiratory effort Auscultation: no wheezes Cardio: Rate: regular rate GI: GI Palp: Yes Soft to palpation Skin: General skin exam: normal color Neuro: Cognition (Neuro): normal cognition Speech: normal speech Extrem: Other: No calf tenderness. Negative Homans. Psych: Mental Status: mental status grossly normal Objective Data Vital Signs Vital Signs: Vital Signs - 24 hr 08/09/19 14:00 08/09/19 20:00 08/09/19 22:00 Temperature 36.6 C 37.3 C Pulse Rate 108 H 108 H 74 Respiratory Rate 18 18 18 Blood Pressure 129/85 100/66 Pulse Oximetry 99 99 100 08/10/19 06:00 Temperature 37.2 C Pulse Rate 108 H Respiratory Rate 16 Blood Pressure 113/68 Pulse Oximetry 99 Intake/Output Intake/Output: Intake & Output 06/1408/08/19 08/09/19 08/10/19 23:59 23:59 23:59 23:59 Intake Total 2950 3895 3565 700 Output Total 235 2185 1080 3 Balance 2715 6184 4120 608 Meds/Results Medications: Active Medications Generic Name Dose Route Start Last Admin Trade Name Freq PRN Reason Stop Dose Admin Acetaminophen 650 mg 08/07/19 08:03 08/07/19 19:18 Tylenol Tablet PO 650 mg Q4H PRN Administration Pain 1-3 or fever Hydrocodone Bitart/Acetaminophen 1 tab 08/07/19 04:57 08/09/19 16:31 [place] 5-325 Mg PO 1 tab Q6H PRN Administration Pain Rated 4-6 Docusate Sodium 100 mg 08/07/19 09:00 08/08/19 21:30 Colace Capsule PO 100 mg Q12HR DEX Administration Enoxaparin Sodium 40 mg 08/08/19 09:00 08/09/19 09:23 Lovenox SUB-Q Not Given DAILY DEX Fentanyl Citrate 25 mcg 08/07/19 10:54 08/07/19 13:55 Sublimaze IV PUSH 25 mcg Q2M PRN Administration Pain Vancomycin HCl 1,750 mg in 500 mls @ 250 mls/hr 08/09/19 09:00 08/10/19 04:37 Vancomycin 1,750 Mg/D5w 500 Ml IVPB Infused Q12H DEX Infusion Lorazepam 0.5 mg 08/08/19 11:44 08/09/19 13:43 Ativan Tab PO 0.5 mg Q6H PRN Administration Anxiety Morphine Sulfate 1 mg 08/07/19 04:57 08/07/19 21:13 Morphine Sulfate Inj IV PUSH 1 mg Q2H PRN Administration Pain Rated 7-10 Ondansetron HCl 4 mg 08/07/19 04:57 08/08/19 11:38 Zofran Inj IV PUSH 4 mg Q6H PRN Administration Nausea Labs Labs: Laboratory Results - last 24 hr 08/09/19 08/09/19 07:15 07:15 WBC 7.4 RBC 3.17 L Hgb 9.3 L Hct 29.3 L MCV 92.4 MCH 29.3 MCHC 31.7 L RDW 12.1 Plt Count 334 MPV 9.4 Sodium 134 L Potassium 3.6 Chloride 101 Carbon Dioxide 26 BUN 4 L D Creatinine 0.50 L Estim Creat Clear Calc
[2019-08-10 07:54] LABS: Basophils Absolute Auto 0.1 K/mm3 (0.0-0.1); Eosinophils Absolute Auto 0.2 K/mm3 (0-0.3); Eosinophils Percent Auto 2.6 % (0-4.4); Hematocrit 30.1 % (37.0-47.0); Hemoglobin 9.8 g/dL (12.0-15.0); Immature Granulocyte Absolute 0.02 K/mm3 (0.00-0.031); Immature Granulocyte Percent A 0.3 % (0-0.5); Lymphocytes Absolute Auto 1.59 K/mm3 (0.9-3.2); Lymphocytes Percent Auto 23.2 % (18.3-44.2); Mean Corpuscular HGB Conc 32.6 g/dl (32-36); Mean Corpuscular Hemoglobin 29.8 pg (26-34); Mean Corpuscular Volume 91.5 fl (80-100); Mean Platelet Volume 9.1 fl (7.4-10.4); Monocytes Absolute Auto 0.6 K/mm3 (0.1-0.6); Neutrophils Absolute Auto 4.4 K/mm3 (1.3-6.7); Neutrophils Percent Auto 64.9 % (45.5-73.1); Platelet Count Result 382 k/mm3 (150-375); Red Blood Count 3.29 M/mm3 (4.2-5.4); Red Cell Distribution Width 12.3 % (11.5-14.5); White Blood Count 6.8 K/mm3 (4.5-10.0)
[2019-08-10 08:15] LABS: Blood Urea Nitrogen 4 mg/dL (7-17); Calcium 8.8 mg/dL (8.4-10.2); Carbon Dioxide 29 mmol/L (22-30); Estimated CRCL calculation 164 ml/min; Estimated Glomerular Filt Rate > 60; Glucose 109 mg/dL (65-105); Magnesium 2.2 mg/dL (1.6-2.3); Potassium 3.6 mmol/L (3.4-5.0); Sodium 137 mmol/L (137-145)
[2019-08-10 09:16] LABS: Chloride 102 mmol/L (98-107)
[2019-08-10] MEDS: DOXYCYCLINE HYCLATE 100 MG TABLET PO (11:20)
--- NOTE | 2019-08-10 11:24 | PM.IMPN ---
Progress Note: A&P Assessment and Plan (1) Sepsis: Code(s): A41.9 - Sepsis, unspecified organism Status: Acute Assessment and Plan: The patient was found to be septic on arrival to the ER with tachycardia, fever, leukocytosis, in the setting of recent surgery and potential abscess of the right breast as likely source. BCx taken at outside facility. Wound Cx shows gram stain of gram positive cocci. Anaerobic culture is in progress, Aerobic culture shows no growth With gram positive cocci, will switch to doxycycline 100 mg Q12 hr PO today. D/c IV vancomycin. Recommend continuing Doxycycline through 08/15-08/19 to complete a total of 10-14 days of antibiotics. Spoke with Dr. Veliz and will d/c to complete course through 08/15 Okay for discharge from hospitalist standpoint. (2) Breast abscess: Code(s): N61.1 - Abscess of the breast and nipple Status: Acute Assessment and Plan: Patient's CT scan of her chest at outside facility showed she had a possible abscess to her right breast. POD [address] Veliz As above, will start PO doxycycline through 08/15 F/u with Dr. Veliz per his instructions (3) History of bilateral breast reduction surgery: Code(s): Z98.890 - Other specified postprocedural states Status: Acute Assessment and Plan: Patient had bilateral breast reduction surgery with tissue removal on 07/12/[address] Veliz Further post-op management per Dr. Veliz Additional Plan Thank you for allowing the Hospitalist team to care for this patient during their stay. Please call with any questions Subjective Date/time seen: 06/17/20 11:24 Hospitalist Consult Progress Note Interval history: Patient is a 24 yo F with history of anxiety/depression, PCOS, and PTSD who recently had b/l breast reduction on 07/12/[address] Veliz who is here for treatment of right breast abscess; POD 3 I&D of right breast and debridement of skin/subcutanesous tissue of right breast per Dr. Veliz; Hospitalist service consulted for medical management. Patient is doing well today, although nervous about going home with her drain. She notes being occasionally hot. Pain is reasonable. She notes less drainage from her drain; nursing confirms less fluid draining. Otherwise, patient has no other complaints. Denies f/c/s, palpitations, sob/cough, n/v/d/c, abd pain, dysuria, hematuria, cloudy urine, calf pain/swelling. Review of Systems Review of Systems: All systems reviewed & are unremarkable except as noted in HPI and below Exam Narrative: Exam Narrative: Patient is sitting upright in bed at time of visit Const: General: cooperative, healthy appearing, comfortable, no acute distress, well developed and alert Nutritional Appearance: well nourished and obese Orientation/consciousness: patient oriented x3 HENMT: Head: normocephalic and atraumatic General nose exam: Normal nares present Face and sinus: face symmetric Mouth: Yes moist mucous membranes Eyes: General: appearance normal, both eyes and all related structures EOM: EOMs intact bilaterally Neck: Neck: trachea midline and supple Chest: Other: Right chest drain shows sanguinous to serosanguinous drainage Right bandage clean without and drainage through bandage Resp: Effort & Inspection: normal respiratory effort Auscultation: clear to auscultation bilaterally Cardio: Rate: regular rate Rhythm: regular rhythm Heart sounds: no murmurs GI: Inspection: non-distended GI Palp: No abdominal tenderness and Yes Soft to palpation Auscultation: normal bowel sounds Skin: General skin exam: normal color and no rashes or lesions noted Neuro: General: patient oriented x3, moves all extremities and no focal motor deficits Speech: normal speech Extrem: Right lower extremity: no nisha
[2019-08-10 14:00] VITALS: BP 118/68; PULSE 106; RESP 18; TEMP 37; O2SAT 100
--- NOTE | 2019-08-16 12:54 | PM.DS ---
DS: Admitting Diagnosis Admitting Diagnosis Admitting Diagnosis: Sepsis, unspecified organism DS: Discharge Diagnosis Discharge Diagnosis (1) Breast abscess: Code(s): N61.1 - Abscess of the breast and nipple Status: Acute (2) History of bilateral breast reduction surgery: Code(s): Z98.890 - Other specified postprocedural states Status: Acute (3) PTSD (post-traumatic stress disorder): Code(s): F43.10 - Post-traumatic stress disorder, unspecified Status: Acute (4) Anxiety: Code(s): F41.9 - Anxiety disorder, unspecified Status: Acute (5) Depression: Code(s): F32.9 - Major depressive disorder, single episode, unspecified Status: Acute (6) PCOS (polycystic ovarian syndrome): Code(s): E28.2 - Polycystic ovarian syndrome Status: Acute (7) Disorder of skin and subcutaneous tissue: Code(s): L98.9 - Disorder of the skin and subcutaneous tissue, unspecified Status: Acute (8) Chronic back pain: Code(s): M54.9 - Dorsalgia, unspecified; G89.29 - Other chronic pain Status: Acute DS: Summary Hospital Course Reason for hospitalization: Patient was admitted with fevers and chills. Elevated white count. Subsequently proceeded the operating room for washout. Hospital Course: She proceeded to the operating room and have washout of the right breast. Significant purulence was identified washed out. A drain was placed. microbiology returned as peptostreptococcus. She also had about 30 Duff 40% inferior aspect areola had loss. The superior half were greater was still present healing well. The pedicle did appear to have good vascularization. We continue antibiotics during admission. She was discharged home on doxycycline, with the drain in place, a Xeroform dressing changes the breast. Her white count was normal and she was feeling well. Status at Discharge Functional status at discharge: independent ambulation Time Spent with Patient Time attestation: Total time spent providing and/or coordinating discharge services: 15 minutes Exam Narrative: Exam Narrative: Right breast is soft. No erythema. No signs of infection. No hematoma. No seroma. Drain is serosanguineous. Const: General: comfortable and no acute distress Eyes: General: appearance normal, both eyes and all related structures Resp: Effort & Inspection: normal respiratory effort Auscultation: no wheezes Cardio: Rate: regular rate GI: GI Palp: Yes Soft to palpation Skin: General skin exam: normal color Neuro: Cognition (Neuro): normal cognition Speech: normal speech Extrem: Other: No calf tenderness. Negative Homans. Psych: Mental Status: mental status grossly normal Discharge Plan Discharge Attending physician on discharge: Norm Veliz Consulting providers: Anibal Carroll ; Micky Hernandez ; Radha Lyn ; Oma Wiley Discharging Clinician: Norm Veliz Anticipated Discharge Date/Time: 08/10/19 13:07 Patient Disposition: Home, Self-Care Activity: other - see discharge instructions Diet: regular Discharge Instructions: POST OPERATIVE DISCHARGE INSTRUCTIONS FOR NORM VELIZ M.D. [facility] [id number] [place] [address] [address] for 24 hours after anesthesia and while you are taking pain medication. Take all prescribed medication as directed Diet as tolerated. No lifting or activity that raises blood pressure for 48 hours. Regular walking / ambulation. May shower; however, keep drain site clean. Wash around drain site. Once you shower do not take pain medication before showering as the combination of medication and heat may cause you to feel dizzy or pass out. No pools or tubs. Call with any questions or concerns. Nurses will provide drain care instructions. Keep us updated with outputs. If you have any questions or concer
== END 2019-08-10 15:30 | disposition home or self-care (01) | DRG 862 ==
PROVIDERS: Physician Assistant; Admitting Provider Surgery Plastic and Reconstructive Surgery; Visit Provider Surgery Plastic and Reconstructive Surgery
PROC: 0H9T00Z Drainage of Right Breast with Drainage Device, Open Approach (ICD-10-PCS; principal; 2019-08-07 09:30)
DX: T81.43XA Infection following a procedure, organ and space surgical site, initial encounter (principal); A40.8 Other streptococcal sepsis; T81.44XA Sepsis following a procedure, initial encounter; N61.1 Abscess of the breast and nipple; E28.2 Polycystic ovarian syndrome; F43.10 Post-traumatic stress disorder, unspecified; F41.8 Other specified anxiety disorders; E66.01 Morbid (severe) obesity due to excess calories; Z98.890 Other specified postprocedural states; Z68.39 Body mass index [BMI] 39.0-39.9, adult; Z87.891 Personal history of nicotine dependence
CPT/HCPCS: 36415; 80048; 80202; 80307; 81001; 83735; 85025; 85027; 87070; 87075; 87076; 87205; 96361; 96365; 96366; 96367; 96368; A9270; G0378; J0131; J0692; J1100; J1170; J1650; J2250; J2270; J2405; J2704; J3010; J3370; J7120